=== PATIENT | male | born 1960 | race Two or more races ===

== ENCOUNTER 2020-01-26 09:55 | Outpatient (CLI) | payer MEDICAID ==
[~2020-01-26] VITALS: Ht 172.7 cm; Wt 107.5 kg
[2020-01-26 10:30] VITALS: BP 145/93
--- NOTE | 2020-01-26 17:15 | Consultation ---
DATE OF CONSULTATION: 01/26/2020 CONSULTING PHYSICIAN: Chaz Conner MD. CHIEF COMPLAINT: Abdominal pain, bloating, and GERD. PAST MEDICAL HISTORY: 1. Coronary artery disease. 2. History of kidney stone. 3. Hypertension. 4. Diabetes. 5. Hypercholesteremia. 6. BPH. 7. GERD. 8. H. pylori positive gastritis. PAST SURGICAL HISTORY: 1. Anal fissure repair. 2. Lithotripsy. 3. Cardiac ablation. MEDICATIONS: Please see medication reconciliation list. FAMILY HISTORY: No family history of GI malignancy. SOCIAL HISTORY: The patient denies any tobacco, alcohol, or drug abuse. ALLERGIES: Epinephrine . REVIEW OF SYSTEMS: Positive for GERD and bloating. Last colonoscopy in 2014, the patient apparently had multiple polyps. PHYSICAL EXAMINATION: VITAL SIGNS: Temperature 97.5, blood pressure 144/93, pulse 61, respirations 20. HEENT: Normocephalic and atraumatic. Sclerae are anicteric. NECK: Supple. No evidence of obvious lymphadenopathy. CARDIOVASCULAR: Regular rate and rhythm. Plus S1-S2. LUNGS: Clear to auscultation bilaterally. ABDOMEN: Positive bowel sounds. Soft and nontender. No rebound. No guarding. No peritoneal sign. EXTREMITIES: No cyanosis, no clubbing, no edema. ASSESSMENT AND PLAN: This is a 59-year-old male with chronic GERD, on PPI, still symptomatic. Also, the patient had multiple colonic polyps in 2015, five years ago. So, the patient would need endoscopy and colonoscopy, which we will schedule as soon as authorization is obtained. Meanwhile, in terms of H. pylori treatment, we are going to wait until we do endoscopy and confirm precipitant to H. pylori. At that point, we will consider treatment with most probably quadruple therapy. Chaz Conner M.D. DR: DANITA JOB#: [id number] CC:
== END 2020-01-26 11:55 | disposition home or self-care (01) ==
LOC: PAN 09:55
DX: R10.9 Unspecified abdominal pain (principal); R14.0 Abdominal distension (gaseous); K21.9 Gastro-esophageal reflux disease without esophagitis; I25.10 Atherosclerotic heart disease of native coronary artery without angina pectoris; I11.9 Hypertensive heart disease without heart failure; Z87.442 Personal history of urinary calculi; E11.9 Type 2 diabetes mellitus without complications; E78.00 Pure hypercholesterolemia, unspecified; Z86.010 Personal history of colon polyps
CPT/HCPCS: G0463